=== PATIENT | female | born 1990 | race Hispanic/Latino ===

== ENCOUNTER 2018-11-02 14:53 | Emergency (ER) | payer MEDICAID, OTHER | END 2018-11-02 15:17 | disposition home or self-care (01) | LOC: EDH 14:53 | DX: M43.6 Torticollis (principal) ==

== ENCOUNTER 2020-02-08 10:59 | Inpatient (IN) | payer MEDICAID ==
[~2020-02-08] VITALS: Ht 154.9 cm; Wt 73.0 kg
[2020-02-11 05:26] VITALS: BP 120/80
[2020-02-11] MEDS ORDERED: CEFAZOLIN SODIUM 1 GM VIAL IVP PRN ×2 (05:30→09:15)
[2020-02-11] MEDS ORDERED: CITRIC ACID/SODIUM CITRATE 30 ML UDCUP PO PRN (05:30)
[2020-02-11] MEDS ORDERED: LACTATED RINGERS 1000ML 1,000 ML IV SCH (05:30)
[2020-02-11] MEDS ORDERED: CALDOLOR 800MG+NS 250ML 250 ML IV PRN ×2 (05:30→09:15)
[2020-02-11 06:13] LABS: HEMATOCRIT 35.3 % (36-48); MEAN CORPUSCULAR HEMOGLOBIN 28.3 pg (27.0-33.0); MEAN CORPUSCULAR HGB CONC 32.3 g/dL (32.0-36.0); MEAN CORPUSCULAR VOLUME 87.6 fL (79-99); RED BLOOD CELL COUNT(AUTO) 4.03 MIL/uL (4.00-5.50); RED CELL DISTRIBUTION WIDTH 13.3 % (11.0-15.5)
[2020-02-11 06:15] VITALS: BP 136/79
[2020-02-11] MEDS ORDERED: LEVO200T5 PO (06:18)
[2020-02-11] MEDS ORDERED: BISACODYL 10 MG SUPP.RECT RC PRN (09:30)
[2020-02-11] MEDS ORDERED: ACETAMINOPHEN EXTRA STRENGTH 500 MG TABLET PO PRN (09:30)
[2020-02-11] MEDS ORDERED: ACETAMINOPHEN-CODEINE 300/30MG TAB PO PRN (09:30)
[2020-02-11] MEDS ORDERED: DIPH,PERTUSS(ACELL),TET VAC/PF 0.5 ML VIAL IM SCH (09:30)
[2020-02-11] MEDS ORDERED: DIPHENHYDRAMINE HCL 25 MG CAPSULE PO PRN (09:30)
[2020-02-11] MEDS ORDERED: OXYTOCIN-LR 20 UNITS/1000 ML 1,000 ML IV PRN (09:30)
[2020-02-11] MEDS ORDERED: MEASLES/MUMPS/RUBELLA VACCINE, LIVE 0.5 ML/VIAL SQ SCH (09:30)
[2020-02-11] MEDS ORDERED: SODIUM CHLORIDE 0.9% 10 ML VIAL IVP PRN (09:30)
[2020-02-11] MEDS ORDERED: LANOLIN 30GM OINTMENT TP PRN (09:30)
[2020-02-11] MEDS ORDERED: OXYTOCIN 10 USP UNITS/ML ONE ×3 (09:45→10:17)
[2020-02-11] MEDS ORDERED: DURAMORPH PF1 MG/ML 10ML AMP IV ONE (09:45)
[2020-02-11] MEDS ORDERED: FENTANYL CITRATE PF 50 MCG/1 ML 2ML VIAL ONE (09:46)
[2020-02-11] MEDS ORDERED: ONDANSETRON HCL 4 MG/2 ML VIAL ONE (09:46)
[2020-02-11] MEDS: PROMETHAZINE HCL 25 MG/ML 1ML AMPULE IM PRN ×2 (12:05→16:33)
[2020-02-11] MEDS: MEPERIDINE-PF 75 MG/ML SYG IM PRN ×2 (12:06→16:33)
[2020-02-11 12:07] VITALS: BP 122/86
[2020-02-11] MEDS: HYDROCODONE/ACETAMINOPHEN 5/325 MG TAB PO PRN ×2 (13:06→21:30)
--- NOTE | 2020-02-11 14:25 | NUR ---
notified Yang Corrigan CRNA that pts pain is not controlled with Demerol and Arcade. He said that he will have somebody call me back. Sky HODGES called and ordered that pt can have Demerol DRAW FURNACE TENDER if pt wants it. Explained to pt about DRAW FURNACE TENDER, but pt refused, pt says she would rather have the high dose of demerol every 4 hours that DRAW FURNACE TENDER. Addendum: 02/11/20 at 1611 by ALAN BARR RN Amended: Links added.
[2020-02-11 16:13] VITALS: BP 111/73
[2020-02-11] MEDS ORDERED: CEFAZOLIN SODIUM 1 GM VIAL IVP SCH (18:00)
[2020-02-11] MEDS: CALDOLOR 800MG+NS 250ML 250 ML IV SCH (18:02)
[2020-02-11 20:02] VITALS: BP 105/63
[2020-02-11] MEDS: DOCUSATE SODIUM 100 MG CAP PO SCH (21:29)
[2020-02-11] MEDS: SIMETHICONE 80 MG TAB.CHEW PO PRN (21:29)
[2020-02-11] MEDS: DEXTROSE 5 %-0.45 % NACL 1,000 ML IV PRN (22:12)
[2020-02-11 23:28] VITALS: BP 113/66
[2020-02-12] MEDS: CALDOLOR 800MG+NS 250ML 250 ML IV SCH (01:32)
[2020-02-12 03:21] VITALS: BP 116/65
[2020-02-12] MEDS: PROMETHAZINE HCL 25 MG/ML 1ML AMPULE IM PRN (03:43)
[2020-02-12] MEDS: MEPERIDINE-PF 75 MG/ML SYG IM PRN (03:44)
[2020-02-12] MEDS: DEXTROSE 5 %-0.45 % NACL 1,000 ML IV PRN (05:50)
[2020-02-12 07:03] LABS: HEMATOCRIT 30.2 % (36-48); MEAN CORPUSCULAR HEMOGLOBIN 28.4 pg (27.0-33.0); MEAN CORPUSCULAR HGB CONC 31.5 g/dL (32.0-36.0); MEAN CORPUSCULAR VOLUME 90.1 fL (79-99); RED BLOOD CELL COUNT(AUTO) 3.35 MIL/uL (4.00-5.50); RED CELL DISTRIBUTION WIDTH 13.5 % (11.0-15.5); WHITE BLOOD COUNT (AUTO) 12.5 K/uL (4.8-10.8)
[2020-02-12 07:06] VITALS: BP 97/63
--- NOTE | 2020-02-12 07:40 | NUR ---
PATIENT ASSESSED AND C/O HAVING SO MUCH PAIN BUT ALSO BEING VERY TIRED SINCE SHE WAS IN PAIN ALL NIGHT AND WAS NOT ABLE TO SLEEP SINCE HER BABY WAS BEING TRANSFERED TO [facility]. PIV INFUSING WELL.
[2020-02-12] MEDS: LIDOCAINE 5% TOPICAL PATCH TP SCH (08:20)
[2020-02-12] MEDS: DOCUSATE SODIUM 100 MG CAP PO SCH ×2 (08:20→20:54)
[2020-02-12] MEDS: SIMETHICONE 80 MG TAB.CHEW PO PRN ×4 (08:20→20:54)
[2020-02-12] MEDS: HYDROCODONE/ACETAMINOPHEN 5/325 MG TAB PO PRN ×2 (08:21→14:12)
--- NOTE | 2020-02-12 10:00 | NUR ---
DR. DRUHAM ROUNDED ON PATIENT AND WAS MADE AWARE OF PATIENT C/O SEVERE PAIN AND REQUESTED TO STAY ANOTHER DAY TO RECOVER. PATIENT HAD PRECIADO REMOVED AND DISCARDED 1250CC OF YELLOW URINE
[2020-02-12 10:12] LABS: HEPATITIS Bs ANTIGEN SCREEN P Negative (Negative)
[2020-02-12 11:19] VITALS: BP 130/72
[2020-02-12] MEDS ORDERED: IBUPROFEN 800 MG TAB ONE (12:37)
[2020-02-12] MEDS: IBUPROFEN 800 MG TAB PO PRN ×2 (12:41→18:35)
--- NOTE | 2020-02-12 14:30 | NUR ---
PATIENT UP AND AMBULATED IN HALLWAY AFTER MEDICATED WITH NORCO FOR THE SECOND TIME DURING THE SHIFT AND TOLERATED ACTIVITY WELL. PATIENT WAS ALSO ABLE TO VOID 350CC OF BLOOD TINGED URINE.
[2020-02-12 16:13] VITALS: BP 92/79
--- NOTE | 2020-02-12 19:15 | NUR ---
REPORT GIVEN TO RAMA DAN AND PATIENT CARE TRANSFERED AT THIS TIME.
[2020-02-12 19:28] VITALS: BP 111/58
--- NOTE | 2020-02-12 21:00 | NUR ---
LIDODERM PATCH REMOVED . ABD. INCISION CLEAN DRY AND INTACT.
[2020-02-12 23:35] VITALS: BP 118/69
[2020-02-13 02:58] VITALS: BP 121/78
[2020-02-13 07:14] VITALS: BP 114/70
--- NOTE | 2020-02-13 08:30 | NUR ---
DR. DURHAM ROUNDED AND PATIENT VERBALIZED DOING MUCH BETTER AND HAS BEEN UP AMBULATING. DISCHARGE ORDER GIVEN FOR PATIENT TO BE DISCHARGED AND FOLLOW UP WITH MARCELA SAN NP IN 2-3 WEEKS. APPOINTMENT HAD BEEN MADE FOR 03/03/20 AT 10:15A.M. PATIENT HAS REMAINED STABLE.
[2020-02-13] MEDS: LIDOCAINE 5% TOPICAL PATCH TP SCH (08:59)
[2020-02-13] MEDS: SIMETHICONE 80 MG TAB.CHEW PO PRN (08:59)
[2020-02-13] MEDS: DOCUSATE SODIUM 100 MG CAP PO SCH (08:59)
[2020-02-13] MEDS: IBUPROFEN 800 MG TAB PO PRN (09:05)
--- NOTE | 2020-02-13 09:45 | NUR ---
ATTEMPTED TO GIVEN DISCHARGE INSTRUCTIONS AND PATIENT WAS RESTING QUIETLY AND NO DISTRESS NOTED. DID NOT ATTEMPT TO WAKE PATEINT AT THIS TIME. PATIENT HAD VERBALIZED NOT GETTING MUCH SLEEP DURING THE NIGHT.
[2020-02-13 11:16] VITALS: BP 99/64
--- NOTE | 2020-02-13 11:45 | NUR ---
PATIENT AWAKE AND WAS GIVEN DISCHARGE INSTRUCTIONS. PATIENT STILL RESTING IN BED AND STATES DOING BETTER AFTER SLEEPING. SCRIPT FOR PAIN MANAGEMENT GIVEN AND WENT TO NURSERY TO GET BREASTMILK FOR PATIENT.
--- NOTE | 2020-02-13 12:30 | NUR ---
PATIENT WAS TAKEN VIA W/C TO [facility]ILY [facility] AND WAS DISCHARGED TO HER SISTER IN STABLE CONDITION. PATIENT STABLE AND DENIES PAIN.
== END 2020-02-13 12:30 | disposition home or self-care (01) | DRG 540 ==
LOC: PREOBSVTOIN 10:59 → LDH 02-11 05:07 → WSH 02-11 12:05
PROVIDERS: ADMIT Obstetrics & Gynecology; ATTEND Obstetrics & Gynecology
PROC: 10D00Z1 Extraction of Products of Conception, Low, Open Approach (ICD-10-PCS; principal; 2020-02-11 07:30)
DX: O34.211 Maternal care for low transverse scar from previous cesarean delivery (principal); Z3A.39 39 weeks gestation of pregnancy; Z37.0 Single live birth; Z20.828 Contact with and (suspected) exposure to other viral communicable diseases; O66.41 Failed attempted vaginal birth after previous cesarean delivery; O69.1XX0 Labor and delivery complicated by cord around neck, with compression, not applicable or unspecified; Z28.29 Immunization not carried out because of patient decision for other reason
CPT/HCPCS: 36415; 59510; 85027; 86592; 86850; 86900; 86901; 87340; A4344; G0378; J0690; J1741; J2175; J2274; J2405; J2550; J2590; J3010; J7120; U0003